=== PATIENT | female | born 1970 | race Caucasian/White ===

== ENCOUNTER 2018-08-16 11:14 | Outpatient (CLI) | payer OTHER | END 2018-08-16 11:29 | disposition home or self-care (01) | LOC: MAMO-SONO 11:14 | DX: N64.4 Mastodynia (principal); N60.11 Diffuse cystic mastopathy of right breast; N63.10 Unspecified lump in the right breast, unspecified quadrant; N63.20 Unspecified lump in the left breast, unspecified quadrant; Z12.31 Encounter for screening mammogram for malignant neoplasm of breast ==

== ENCOUNTER 2018-09-17 10:20 | Outpatient (CLI) | payer OTHER | END 2018-09-17 10:39 | disposition home or self-care (01) | LOC: SONOGRAMA 10:20 | DX: D24.2 Benign neoplasm of left breast (principal); N60.11 Diffuse cystic mastopathy of right breast; N60.12 Diffuse cystic mastopathy of left breast ==

== ENCOUNTER 2019-01-14 06:45 | Day surgery (SDC) | payer OTHER ==
[~2019-01-14 06:45] MED LIST: [UNRECOGNIZED DRUG - OTHER] PO
== END 2019-01-14 19:14 | disposition home or self-care (01) ==
LOC: CIR.AMB 06:45
PROVIDERS: Plastic Surgery; Surgery
PROC: 0HBT0ZZ Excision of Right Breast, Open Approach (ICD-10-PCS; principal; 2019-01-14 12:15)
PROC: 0HBV0ZZ Excision of Bilateral Breast, Open Approach (ICD-10-PCS; 2019-01-14 12:15)
DX: D24.1 Benign neoplasm of right breast (principal); N62 Hypertrophy of breast

== ENCOUNTER 2019-08-15 10:58 | Outpatient (CLI) | payer OTHER | END 2019-08-15 11:07 | disposition home or self-care (01) | LOC: RAD 10:58 | DX: C50.411 Malignant neoplasm of upper-outer quadrant of right female breast (principal); N60.11 Diffuse cystic mastopathy of right breast; N60.12 Diffuse cystic mastopathy of left breast; I10 Essential (primary) hypertension ==

== ENCOUNTER 2019-08-19 07:05 | Day surgery (SDC) | payer OTHER | END 2019-08-19 13:30 | disposition home or self-care (01) | LOC: CIR.AMB 07:05 | DX: C50.411 Malignant neoplasm of upper-outer quadrant of right female breast (principal); R59.0 Localized enlarged lymph nodes ==

== ENCOUNTER 2021-04-09 15:05 | Outpatient (CLI) | payer OTHER | END 2021-04-09 15:20 | disposition home or self-care (01) | LOC: PPH VACUNA 15:05 | PROVIDERS: ATTEND Emergency Medicine Pediatric Emergency Medicine | DX: Z23 Encounter for immunization (principal) ==